=== PATIENT | female | born 1955 | race Caucasian/White ===

== ENCOUNTER → 2024-08-23 13:09 | Outpatient (REF) | payer MEDICARE, OTHER, SELFPAY | LOC: WDC 13:09 | PROVIDERS: ATTENDING PHYSICIAN Family Medicine | DX: M85.89 Other specified disorders of bone density and structure, multiple sites (principal); Z12.31 Encounter for screening mammogram for malignant neoplasm of breast | CPT/HCPCS: 77063; 77067; 77080 ==

== ENCOUNTER 2024-12-08 03:37 | Emergency (ER) | payer MEDICARE, OTHER, SELFPAY ==
[2024-12-08 03:38] VITALS: BP 156/83
--- NOTE | 2024-12-08 04:00 | ED.GENMED ---
History of Present Illness
General
Chief Complaint: Eye Problems
Source: patient
Exam Limitations: none
Time Seen by Provider: 12/08/24 03:43
Nursing documentation reviewed up to this point in time: agreed with
History of Present Illness
History of Present Illness:
This is a 69-year-old woman who states she woke up tonight with pain, irritation, foreign body sensation of her left eye. She denies vision difficulty. She does admit to being outdoors 2 days ago and is unsure something flew into her left eye.
She had very mild irritation yesterday, mild tearing last night but onset of pain and foreign body sensation upon waking this morning. Similar symptoms with a prior corneal abrasion approximately 10 to 15 years ago.
She denies headache.
She wears a contact only in her right eye.
Up-to-date with Tdap December 2021.
Past History
Past History
ED Past Medical History: Hypercholesterolemia and Other (Impaired fasting glucose)
ED Past Surgical History: Cholecystectomy, and Tonsilectomy
Social History
Tobacco: Smoker
Personal:
Living: with family
Employment: Employed
Family History
Family History: Other (Noncontributory)
Phy Exam
Physical Exam
Physical Exam:
GENERAL: 69-year-old woman appears somewhat younger than stated age. Bright and alert, pleasant, appears in no acute distress. is accompanying.
EYE: pupils equal and reactive. Extraocular muscles intact. Very mild conjunctival injection noted left eye. No chemosis. Gross visual acuity intact bilaterally. Anicteric. Tetracaine instilled into left eye with prompt and complete relief of
left eye irritation. Left eye examined with fluorescein stain and Salguero lamp. There is a superficial corneal abrasion noted at 10 o'clock position. No foreign body. Anterior chamber is clear.
NECK: Supple, nontender, no meningismus, no significant adenopathy.
ENT: oral mucosa is moist. No rhinorrhea.
LUNGS: no acute respiratory distress
ABDOMEN: Soft, nondistended, without focal tenderness
NEUROLOGICAL: Alert and oriented x3, no focal neuro deficits. Gait is zaidi and steady.
SKIN: Warm and dry, normal color, skin intact. No rash.
MUSCULOSKELETAL: No C/C/E. peripheral pulses are full and equal b/l. No palpable tenderness.
PSYCH: Normal and appropriate interaction.
Course
Orders/Labs/Results
Orders:
Orders
12/08/24 03:59
Gentamicin [Genoptic 0.3% Eye Drops] See Dose Instructions OPHTH NOW STA
12/08/24 04:02
Tetracaine HCl [Tetracaine 0.5% Ophthalmic Solution] See Dose Instructions OPHTH ONCE ONE
Vital Signs
Initial and Last Documented VS:
Initial Vital Signs
Temp Pulse Resp BP Pulse Ox
97.5 F 82 16 156/83 99
12/08/24 03:38 12/08/24 03:38 12/08/24 03:38 12/08/24 03:38 12/08/24 03:38
Last Documented Vital Signs
Temp Pulse Resp BP Pulse Ox
97.5 F 82 16 156/83 99
12/08/24 03:38 12/08/24 03:38 12/08/24 03:38 12/08/24 03:38 12/08/24 03:38
MDM/Problems Addressed
Differential Diagnosis Includes:
Patient presents with left eye pain, foreign body sensation. Complete relief after tetracaine instilled.
Exam remarkable for superficial corneal abrasion left eye.
Will initiate a course of gentamicin ophthalmic solution.
Patient provided with tetracaine to use every 1-2 hours as needed for eye pain over the next 24 hours.
Recommend prompt follow-up with nutritionalist for recheck.
Up-to-date with Tdap 2021.
*Pulse Oximetry
Patient hypoxic: no
*Critical Care Note
Total Time (30-74mins, 75-104mins- exclusive of procedures): Not Applicable
ED Attending Note
-
Portions of this chart may have been created with voice recognition software.� Occasional wrong word or��sound alike� substitutions may have occurred due to the inherent limitations of voice recognition software.
Discharge Plan
Departure
Patient Disposition: Home (Routine Discharge)
Date of Disposition: 12/08/24
Time of Disposition: 04:00
Patient with high blood pressure during this ER visit?: Yes
Condition: Good
Discharge Problem:
corneal abrasion left eye
Instructions: Corneal Abrasion (DC), BLOOD PRESSURE
Prescriptions:
New
gentamicin 0.3 % drops
1 drp ophthalmic (eye) QID Qty: 5 0RF
Referrals:
Hiram Kruse DO [Family Provider] -
Erwin Mcqueen MD [[facility]] - Call in 1-3 days for appt
Activity Restrictions/Additional Instructions:
Tetracaine eye drop. you can use 1 drop to left eye every hour as needed for 1 day.
Avoid rubbing your eye. You can gently dab.
follow up with your nutritionalist for recheck.
Interventions
Interventions:
*Risk Screen - Suicide Last Done: 12/08/24 03:38
*General Assessment Last Done: 12/08/24 03:38
*Neglect/Abuse Screening Last Done: 12/08/24 03:38
Discharge Date and Time
Print Language: [id number]
[2024-12-08] MEDS: GENOPTIC 0.3% EYE DROPS 1 DROP OPHTH (04:04)
[2024-12-08] MEDS: TETRACAINE 0.5% OPHTHALMIC SOLUTION 1 DROP OPHTH (04:05)
[2024-12-08 04:16] VITALS: BP 134/87
== END 2024-12-08 04:18 | disposition home or self-care (01) ==
LOC: EMR 03:37
PROVIDERS: EMERGENCY PHYSICIAN Emergency Medicine; FAMILY PHYSICIAN Family Medicine
DX: S05.02XA Injury of conjunctiva and corneal abrasion without foreign body, left eye, initial encounter (principal); X58.XXXA Exposure to other specified factors, initial encounter; E78.00 Pure hypercholesterolemia, unspecified; Z90.49 Acquired absence of other specified parts of digestive tract; F17.200 Nicotine dependence, unspecified, uncomplicated
CPT/HCPCS: 99283

== ENCOUNTER → 2025-02-14 14:50 | Outpatient (REF) | payer MEDICARE, OTHER, SELFPAY | LOC: RAD 14:50 | PROVIDERS: ATTENDING PHYSICIAN Family Medicine | DX: R05.9 Cough, unspecified (principal) | CPT/HCPCS: 71046 ==

== ENCOUNTER → 2025-03-25 11:06 | Outpatient (REF) | payer MEDICARE, OTHER, SELFPAY | LOC: RAD 11:06 | PROVIDERS: ATTENDING PHYSICIAN Family Medicine | DX: R05.9 Cough, unspecified (principal) | CPT/HCPCS: 71046 ==